=== PATIENT | male | born 1965 | race Caucasian/White ===

== ENCOUNTER 2018-02-13 07:09 | Day surgery (SDC) | payer OTHER ==
--- NOTE | 2018-01-30 10:59 | HP ---
PREOPERATIVE HISTORY AND PHYSICAL: DATE OF ADMISSION/SURGERY: 02/13/18. DATE OF OFFICE VISIT: 01/24/18 ATTENDING SURGEON: Dr. Nkechi Anglin.* (DICTATED BY A[facility]ORA LOW) PROCEDURE: Right shoulder arthroscopic rotator cuff repair, decompression, debridement, subpectoral biceps tenodesis. CHIEF COMPLAINT: Right shoulder. HISTORY OF PRESENT ILLNESS: Phan is a 52-year-old male who presents to the clinic for right shoulder pain due to a rotator cuff tear and biceps tendinitis. He has failed conservative measures and has therefore agreed to undergo a right shoulder arthroscopic rotator cuff repair, decompression, debridement, and subpectoral biceps tenodesis with Dr. Anglin on 02/13/18. The patient states that he continues to smoke. He smokes about 3 cigarettes a day. PAST MEDICAL HISTORY: Hypothyroidism, tobacco use. PAST SURGICAL HISTORY: Right ankle x2, cholecystectomy. Denies prior complications with anesthesia. MEDICATIONS: Levothyroxine 200 mcg 1 by mouth every day on an empty stomach, await 30 minutes before eating. ALLERGIES: No known drug allergies. FAMILY HISTORY: Positive for diabetes in maternal grandmother; cancer in father , and hypertension. Denies family history of DVT or PE. SOCIAL HISTORY: He lives with his spouse. 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 He smokes 3 cigarettes a day. He reports occasional alcohol consumption. He is right-hand dominant. REVIEW OF SYSTEMS: A 14-point review of systems was completed with the patient. Positive for smoking and current complaint, otherwise negative. Denies fevers, chills, chest pain, shortness of breath, history of DVT or PE, history of bleeding disorder, history of hepatitis C or HIV. PHYSICAL EXAMINATION GENERAL: Well-developed, well-nourished 52-year-old male in no acute distress. Alert and oriented x3. Appropriate mood and affect. VITAL SIGNS: Height 65.5, weight 170, blood pressure 120/76, respiratory rate 18, temperature 97.3, BMI 27.9. HEENT: Normocephalic, atraumatic. PERRLA. Throat clear. NECK: Supple. PULMONARY: Lungs are clear to auscultation bilaterally. No wheezing, rhonchi, or rales. CARDIO: Regular rate and rhythm. S1 and S2. No murmurs, gallops, or rubs. No edema. ABDOMEN: Positive bowel sounds, soft, and nontender. NEURO: Alert and oriented x3. Cranial nerves grossly intact. Sensation intact to light touch. MUSCULOSKELETAL: Right upper extremity is intact. No warmth or erythema. Tenderness over the proximal groove and subacromial space. Forward flexion to 130, passive to 160, abduction 100, external rotation to 40. Full range of motion in the elbow, wrist, and hand. Positive impingement, Blair. +4/5 strength with the rotator cuff testing with pain. +2 radial pulse. Sensation intact to light touch distally. DIAGNOSTIC STUDIES: MRI of the right shoulder revealed tearing of the supraspinatus tendon, area of full-thickness tear, and high-grade partial thickness tear of the infraspinatus tendon, as well as biceps tendinitis. IMPRESSION: Right shoulder rotator cuff tear and biceps tendinitis. PLAN/RECOMMENDATIONS: The patient is scheduled to undergo a right shoulder arthroscopic rotator cuff repair, decompression, debridement, and subpectoral biceps tenodesis with Dr. Anglin on 02/13/18. He will return to the office 10 to 14 days postop for followup and suture removal. Percocet will be used for postoperative pain management. AURORA LOW [id number]/[facility] #: [id number] MTDNeil
[~2018-02-13 07:09] MED LIST: Buffered Lidocaine 0.9% SYRIN* 5 ML/SYR SYRINGE INTRADERM ONE; Bupivacaine 0.25% SDV* 30 ML ONE; Dexamethasone TAB* 4 MG PO ONE; DiMENhydriNATE IV* 50 MG/ML VIAL IV PUSH PRN; Famotidine IV* 10 MG/ML 2 ML (20 mg) IV ONE; Morphine INJ* 2 MG/ML 1 ML CARPUJECT IV PRN; Naloxone* 0.4 MG/ML 1 ML VIAL IV PRN; Ondansetron INJ* 2 MG/ML VIAL ONE; PROCHLORPERAZINE INJ 5 MG/ML 2 ML VIAL IV PRN; Scopolamine 1.5 mg* PATCH TRANSDERM PRN; fentaNYL* 50 MCG/ML 2 ML VIAL (100 MCG VIAL) IV PRN; oxyCODONE/Acetamin 5/325 MG* TAB PO PRN
[2018-02-13] MEDS ORDERED: ceFAZolin 2 GM PREMIX (*) 2 GM/50 ML BAG IVPB ONE (07:38)
[2018-02-13] MEDS ORDERED: Famotidine TAB* 20 MG ONE (07:38)
[2018-02-13] MEDS ORDERED: Ondansetron ODT TAB* 4 MG ONE (07:38)
[2018-02-13] MEDS ORDERED: Dexamethasone TAB* 4 MG ONE (07:38)
[2018-02-13] MEDS ORDERED: fentaNYL* 50 MCG/ML 2 ML VIAL (100 MCG VIAL) ONE (07:53)
[2018-02-13] MEDS ORDERED: Midazolam* 1 MG/ML 5 ML VIAL (5 MG) ONE (07:53)
[2018-02-13] MEDS ORDERED: Bupivacaine 0.25% SDV* 30 ML ONE (08:51)
[2018-02-13] MEDS ORDERED: Ketorolac INJ* 30 MG/ML 1 ML VIAL ONE (09:17)
[2018-02-13] MEDS ORDERED: Lidocaine 2% PF * 5 ML VIAL ONE (09:17)
[2018-02-13] MEDS ORDERED: Propofol* 10 MG/ML 20 ML BTL IV PUSH ONE (09:17)
[2018-02-13 10:57] VITALS: BP 148/94
--- NOTE | 2018-02-13 12:46 | OP ---
CC: PCP, Umer Benson MD * DATE OF OPERATION: 02/13/18 - [facility] DATE OF : 67 ATTENDING SURGEON: Nkechi Anglin MD. BOOKKEEPER: AURORA Juarez. An purchasing administrative assistant was needed for the entirety of the case to help with positioning, retraction, and utilized throughout all portions of the case. ANESTHESIOLOGIST: Dr. Patel. ANESTHESIA: General interscalene block. PRE-OP DIAGNOSIS: Right shoulder high grade bursal-sided tear of the supraspinatus tendon, bicipital tendonitis with possible SLAP tear. POST-OP DIAGNOSIS: Right shoulder high grade bursal-sided tear of the supraspinatus tendon, bicipital tendonitis with possible SLAP tear. OPERATIVE PROCEDURE: 1. Right shoulder arthroscopy with glenohumeral debridement including debridement of the anterior, posterior, superior labrum. 2. Subacromial decompression with acromioplasty. 3. Rotator cuff repair of the supraspinatus in a double row fashion. 4. Subpectoral biceps tenodesis. IMPLANTS USED: One Q-Fix, one Healicoil, and one MultiFix. INDICATIONS: Phan Blair is a 52-year-old male who sustained an injury to his shoulder after he was adjusting himself in bed and felt a pop in his shoulder. We initially treated him conservatively. He had significant weakness and we sent him to get an MRI that demonstrated a very high-grade near full thickness tear of the supraspinatus tendon. Risks and benefits were discussed at length. The patient did have a history of smoking where he worked on trying to quit but he still reports he smokes at least 1 cigarette a day. Risks and benefits were discussed at length included but not limited to bleeding; infection; damage to nerves, vessels, surrounding structures; wound nonhealing; persistent pain; need for further surgery; scaring; stiffness; incomplete relief of symptoms; and risks of anesthesia. DESCRIPTION OF PROCEDURE: The patient was greeted in the preoperative area by the attending surgeon. Correct extremity was marked. Consent was confirmed. The patient underwent interscalene nerve block by the anesthesiologist after which he was brought back to the operating table. He was placed in the supine position on the operating room table. He then underwent general anesthesia with endotracheal intubation after which he was properly positioned in the left lateral decubitus position with an axillary roll. All bony prominences were padded. He was secured with a peg board. The right arm was draped unsterile with 10 pounds of traction. The right shoulder was then prepped and draped in the usual sterile fashion beginning with chlorhexidine soap, scrub, and alcohol wipe and a final prep with ChloraPrep. After appropriate surgical pause indicating site, side, procedure, administration of antibiotics, the standard posterolateral portal was made sharply with an 11 blade. Scope was introduced into the joint. The joint was examined, there was abundant synovitis present. The superior labrum was torn and the anteroposterior labrum had mild fraying. The biceps had abundant synovitis attached to it. The undersurface of the subscap was intact. The undersurface of the supra-spinatus had some mild fraying, but overall looked intact. The glenohumeral joint had grade 0 to 1 changes. The inferior recess had abundant synovitis, but was otherwise intact. Once the debridement was complete using the shaver to debride the anterior, posterior, superior labrum, as well as to tenotomize the biceps using scissors, the subscap was evaluated and again found to have no tears. The scope was positioned in the subacromial space. With the scope in the subacromial space, the lateral portal was made in an outside- in fashion. Shaver was used to debride the abundant hyperemic bursa. Exposed the near full-thickness tear of the bursal side of the supraspinatus. This was a small U-shaped tear. The synovitis was debrided back and hemostasis was obtained using electrocautery device. The undersurface of the acromion was skeletonized using electrocautery device and the CA ligament peeled back. The undersurface of the acromion had a spur which was removed using the 4-0 oval bur to remove the small anterolateral spur. Once this was completed attention was directed to the rotator cuff. The tear was then completed using electrocautery device. Again this was probably 80% of the bursal side that was torn. The greater tuberosity was then prepared in the usual fashion using the rasp as well as the 4-0 oval bur to gently decorticate. The bone quality was very poor in the acromion as well as the humeral head. It was somewhat soft in portions. The excess debris was removed and the cuff was then carefully mobilized. It was found to be appropriately mobilized. Through a separate stab incision, a 4.75 mm Healicoil was placed along the medial row. The sutures were passed in a horizontal mattress configuration, then tied down using arthroscopic knot tying. The suture ends were then passed through a separate anchor. A MultiFix for lateral row fixation. This helped restore the rotator cuff to the appropriate landmark as well as gently compress the cuff. An awl was also used to do small bone marrow aspirate tunnels to allow for greater sites of bleeding. Final images were obtained. The wounds were copiously irrigated and then attention was directed to the biceps. The bed was airplaned to the right side. The anterior aspect of the shoulder was prepped again using ChloraPrep. A 15 blade was used to make incision in line with the biceps tendon encompassing the inferior two-thirds of the pec. The soft tissue were carefully dissected using Metzenbaum until the fascia was identified and the remainder of the dissection was done bluntly. The pec was elevated the bicipital groove was palpated and the biceps was brought through the wound, had abundant synovitis and erythema. The groove was then prepared in the usual fashion using the electrocautery device, the red ball rasp, and osteotome. The Q-Fix drill guide was then drilled unicortically. The Q-Fix was deployed with excellent purchase. The sutures were then passed through the tendon in a Vern-Steven type configuration. Excess stump was excised and the biceps was shuttled down to the wound. The biceps were then tied down. The wounds were copiously irrigated. The anterior wound was closed in layers with 2 -0 Vicryl and 3-0 Monocryl. The portals were closed with 3-0 Vicryl and 20 cc of 0.25% Marcaine was injected into the anterior wound. Sterile dressings were applied. A Cryo/Cuff and UltraSling were applied. He was awoken from anesthesia and transferred to PACU in stable condition. POSTOPERATIVE PLAN: He will be nonweightbearing. He will begin range of motion of his elbow, wrist, and hand starting tomorrow. DVT prophylaxis was considered but deferred due to no previous personal or family history. I will see the patient back in 10 to 14 days. [id number]/[facility] #: [id number] GABY
[2018-02-16] MEDS ORDERED: Scopolamine PATCH Remove* 1 NOTE MISC PATCH OFF ONE (05:44)
== END 2018-02-13 11:18 | disposition home or self-care (01) ==
LOC: OREAST 07:09
PROVIDERS: ATTEND Orthopaedic Surgery
DX: S46.011A Strain of muscle(s) and tendon(s) of the rotator cuff of right shoulder, initial encounter (principal); M75.21 Bicipital tendinitis, right shoulder; S43.491A Other sprain of right shoulder joint, initial encounter; X50.0XXA Overexertion from strenuous movement or load, initial encounter; Y92.003 Bedroom of unspecified non-institutional (private) residence as the place of occurrence of the external cause; F17.210 Nicotine dependence, cigarettes, uncomplicated; E03.9 Hypothyroidism, unspecified; G89.18 Other acute postprocedural pain
CPT/HCPCS: A9270-GY; C1713; C1776; J0690; J1885; J2250; J2704; J3010; J8540